=== PATIENT | female | born 1990 | race Caucasian/White ===

== ENCOUNTER → 2018-04-02 | Outpatient (REF) | payer BC | LOC: M SFHCLERA 15:05 | PROVIDERS: ATTEND Nurse Practitioner Family | DX: J00 Acute nasopharyngitis [common cold] (principal) ==

== ENCOUNTER → 2025-02-27 | Outpatient (CLI) | payer OTHER | LOC: M PLARAD 07:56 | PROVIDERS: ATTEND Psychiatry & Neurology Neurology | DX: G35.D Multiple sclerosis, unspecified (principal); M48.02 Spinal stenosis, cervical region; M47.812 Spondylosis without myelopathy or radiculopathy, cervical region ==